=== PATIENT | female | born 1955 | race Caucasian/White ===

== ENCOUNTER 2018-08-08 12:12 | Emergency (ER) | payer MEDICAID ==
[2018-08-08 12:37] VITALS: O2SAT 98
--- NOTE | 2018-08-08 13:11 | C.PDOC ---
History Of Present Illness 63 y/o female, w/PMhx of HTN, asthma, and hypercholesterolemia, presents to the ER complaining of redness and swelling to skin around bilateral eyes. Patient states that she washed her face with tapwater last night and she woke up with redness around her eyes in the morning. Patient reports that she did not take any medications for the symptoms. Denies new lotions, soaps, detergent. Denies fevers, chills, headache, visual changes, eye redness, painful eye movement, CP, SOB, wheezing, cough. Chief Complaint (Nursing): Allergic Reaction History Per: Patient History/Exam Limitations: no limitations Onset/Duration Of Symptoms: Hrs Current Symptoms Are (Timing): Still Present Severity: Moderate Past Medical History Reviewed: Historical Data, Nursing Documentation, Vital Signs Vital Signs: Last Vital Signs Temp 99.0 F 08/08/18 12:30 Pulse 102 H 08/08/18 12:30 Resp 19 08/08/18 12:30 BP 152/93 H 08/08/18 12:30 Pulse Ox 98 08/08/18 12:30 - Medical History PMH: Arthritis, Asthma, HTN, Hypercholesterolemia, Migraine, Osteoporosis Denies: Diabetes, Hepatitis, HIV, Seizures, Sexually Transmitted Disease Surgical History: No Surg Hx Family History: States: No Known Family Hx - Social History Hx Tobacco Use: No Hx Alcohol Use: No Hx Substance Use: No - Immunization History Hx Tetanus Toxoid Vaccination: No Hx Influenza Vaccination: No Hx Pneumococcal Vaccination: No Review Of Systems Except As Marked, All Systems Reviewed And Found Negative. Constitutional: Negative for: Fever, Chills Eyes: Positive for: Other (redness and swelling around eyes). Negative for: Pain, Vision Change, Conjunctivae Inflammation, Eyelid Inflammation, Redness Cardiovascular: Negative for: Chest Pain, Palpitations Respiratory: Negative for: Cough, Shortness of Breath, Hemoptysis, Wheezing Gastrointestinal: Negative for: Nausea, Vomiting, Abdominal Pain Musculoskeletal: Negative for: Neck Pain, Shoulder Pain, Arm Pain, Back Pain, Hand Pain, Leg Pain, Foot Pain Skin: Positive for: Rash (skin around bilateral eyes). Negative for: Lesions, Jaundice, Bruising Neurological: Negative for: Weakness, Numbness, Headache, Dizziness Physical Exam - Physical Exam Appears: Well, Non-toxic, No Acute Distress Skin: Warm, Dry, Rash (redness and mild swelling to skin around bilateral eyes) Head: Atraumatic, Normacephalic Eye(s): bilateral: Normal Inspection, PERRL, EOMI, Other (erythema and swelling to skin around bilateral eyes) Ear(s): Bilateral: Normal Nose: Normal Oral Mucosa: Moist Neck: Supple Chest: Symmetrical Cardiovascular: Rhythm Regular Respiratory: Normal Breath Sounds, No Decreased Breath Sounds, No Rales, No Rhonchi, No Wheezing Gastrointestinal/Abdominal: Normal Exam, Bowel Sounds (normoactive), Soft, No Tenderness Pulses: Left Radial: Normal, Right Radial: Normal Neurological/Psych: Oriented x3, Normal Speech, Normal Cognition, Normal Cranial Nerves, Normal Motor, Normal Sensation Gait: Steady ED Course And Treatment O2 Sat by Pulse Oximetry: 98 (RA) Pulse Ox Interpretation: Normal Medical Decision Making Medical Decision Making: Plan: -- Prednisone PO -- Pepcid PO On re-evaluation, swelling and redness have reduced significantly. Pt feels much better, asking to be discharged home. Plan of care discussed with patient, and strict instructions given regarding prescriptions, importance of follow up, and signs to return to Emergency Department, to include worsening swelling, vision changes, headache, eye redness/pain or any other new/worsening symptoms. Patient verbalizes understanding of discussion. Patient A&Ox3, ambulating with steady gait, stable for discharge home. Impression: Allergic Reaction Plan: * Prednisone * Pepcid * Followup with primary doctor/clinic within 2 days * Return to ER for new/worsening symptoms Disposition - Disposition Referrals: [facility] at [facility] [Outside] Disposition: HOME/ ROUTINE Disposition Time: 13:30 Condition: IMPROVED Additional Instructions: Increase fluids Avoid allergens Take medicine as prescribed, for 3 days Followup with clinic within 2 days Return to ER for new/worsening symptoms Prescriptions: Famotidine [Heartburn Prevention] 20 mg PO Q12H #6 tablet Prednisone [Deltasone] 20 mg PO DAILY #3 tablet Instructions: Skin Rash (DC) Forms: General Discharge Instructions, [facility] (Slovenian) - Clinical Impression Clinical Impression: Allergic reaction - PA / INDIRECT SALES REPRESENTATIVE / Resident Statement MD/DO has reviewed & agrees with the documentation as recorded. - Scribe Statement The provider has reviewed the documentation as recorded by the Kevin Isaacs Provider Attestation All medical record entries made by the Shylaibe were at my direction and personally dictated by me. I have reviewed the chart and agree that the record accurately reflects my personal performance of the history, physical exam, medical decision making, and the department course for this patient. I have also personally directed, reviewed, and agree with the discharge instructions and disposition.
[2018-08-08 14:15] VITALS: BP 140/90; PULSE 100; RESP 18; TEMP 98.3
== END 2018-08-08 13:50 | disposition home or self-care (01) ==
LOC: C.ER 12:12
DX: T78.40XA Allergy, unspecified, initial encounter (principal); I10 Essential (primary) hypertension; E78.00 Pure hypercholesterolemia, unspecified; M81.0 Age-related osteoporosis without current pathological fracture